=== PATIENT | female | born 1960 | race Two or more races ===

== ENCOUNTER 2019-08-17 20:36 | Emergency (ER) | payer MEDICARE, OTHER ==
[~2019-08-17] VITALS: Ht 167.6 cm; Wt 133.8 kg
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
[2019-08-17] MEDS ORDERED: OLANZAPINE 10 MG VIAL IM ONE ×2 (20:48→21:00)
--- NOTE | 2019-08-17 20:55 | NUR ---
EKG, AND LAB AT BEDSIDE
[2019-08-17 21:02] LABS: BASOPHILS # (AUTO) 0.4 /CMM (0.0-0.2); BASOPHILS % (AUTO) 2.8 % (0.0-2.0); EOSINOPHILS % (AUTO) 1.4 % (0.0-6.0); HEMATOCRIT 41 % (33-45); LYMPHOCYTES # (AUTO) 1.5 /CMM (0.8-4.8); LYMPHOCYTES % (AUTO) 11.4 % (20.0-44.0); MEAN CORPUSCULAR HGB CONC 35 g/dl (31.0-36.0); MEAN CORPUSCULAR VOLUME 88 fL (82-100); MONOCYTES # (AUTO) 0.9 /CMM (0.1-1.30); MONOCYTES % (AUTO) 7.1 % (2.0-12.0); NEUTROPHILS # (AUTO) 10.1 /CMM (1.8-8.9); NEUTROPHILS % (AUTO) 77.3 % (43.0-81.0); PLATELET COUNT (AUTO) 256 /CMM (150-450); RED BLOOD CELL COUNT(AUTO) 4.61 MIL/uL (4.0-5.2); WHITE BLOOD COUNT (AUTO) 13.1 K/uL (4.3-11.0)
[2019-08-17 21:05] LABS: APPEARANCE,URINE Cloudy (CLEAR); BILIRUBIN,URINE SMALL (NEGATIVE); BLOOD, URINE Moderate Ery/uL (NEGATIVE); COLOR,URINE Yellow (YELLOW); KETONES,URINE 15 (NEGATIVE); LEUKOCYTE ESTERASE ,URINE Moderate (NEGATIVE); NITRITE, URINE Negative (NEGATIVE); PROTEIN,URINE 100 mg/dl (NEGATIVE); UGLUCOSE Negative (NEGATIVE); UROBILINOGEN,URINE 0.2 EU/dL (0.2)
[2019-08-17 21:13] LABS: BACTERIA,URINE 4+ /HPF (None Seen); SQUAMOUS EPITHELIAL CELL,UR Few /HPF (None Seen); WBC,URINE TOO NUMEROUS TO COUN /HPF (0-3)
[2019-08-17 21:14] LABS: CALCIUM, SERUM 9.4 mg/dL (8.5-10.1); CARBON DIOXIDE 26 mmol/L (21-32); CHLORIDE 102 mmol/L (98-107); CREATININE 1.4 mg/dL (0.6-1.3); GLUCOSE 125 mg/dL (74-106); POTASSIUM 3.1 mmol/L (3.5-5.1); SODIUM SERUM 140 mmol/L (136-145); UREA NITROGEN, BLOOD 12 mg/dL (7-18)
[2019-08-17 21:19] LABS: ALANINE AMINOTRANSFERASE 21 U/L (12-78); ALBUMIN 3.9 g/dL (3.4-5.0); ALCOHOL, BLOOD < 3 mg/dL (0-0); ALKALINE PHOSPHATASE 123 U/L (46-116); ASPARTATE AMINOTRANSFERASE 25 U/L (15-37); BILIRUBIN,DIRECT 0.2 mg/dL (0.0-0.2); BILIRUBIN,TOTAL 0.7 mg/dL (0.2-1.0); TOTAL PROTEIN, SERUM 7.9 g/dL (6.4-8.2)
[2019-08-17 21:20] LABS: ACETAMINOPHEN 0 ug/ml (10-30)
--- NOTE | 2019-08-17 21:25 | NUR ---
RESTING COMFORTABLY IN BED WITH EYES CLOSED. EASILY AROUSED. NAD. VSS. WILL CONTINUE TO MONITOR. SAFETY MEASURES IN PLACE.
[2019-08-17] MEDS ORDERED: POTASSIUM CHLORIDE 20 MEQ TAB.PRT.SR PO ONE ×2 (21:30→21:37)
[2019-08-17] MEDS ORDERED: CEPHALEXIN MONOHYDRATE 500 MG CAPSULE PO ONE ×2 (21:30→21:37)
--- NOTE | 2019-08-17 22:40 | NUR ---
Patient is resting comfortably in bed with eyes closed. Easily aroused. VSS. SAFEY MEASURES IN PLACE.
--- NOTE | 2019-08-18 00:03 | NUR ---
PT ASLEEP, NO ACUTE DISTRESS NOTED, RESP EVEN AND UNLABORED. CALL LIGHT WITHIN REACH. WILL CONTINUE TO MONITOR PT CLOSELY.
--- NOTE | 2019-08-18 02:01 | NUR ---
PT ASLEEP, NO ACUTE DISTRESS NOTED, RESP EVEN AND UNLABORED. CALL LIGHT WITHIN REACH. WILL CONTINUE TO MONITOR PT CLOSELY.
--- NOTE | 2019-08-18 04:25 | NUR ---
PT ASLEEP, NO ACUTE DISTRESS NOTED, RESP EVEN AND UNLABORED. CALL LIGHT WITHIN REACH. WILL CONTINUE TO MONITOR PT CLOSELY.
--- NOTE | 2019-08-18 05:43 | NUR ---
PT AAOX4 NO ACUTE DISTRESS NOTED, RESP EVEN AND UNLABORED. PT AMBULATORY TO THE BATHROOM WITH STEADY GAIT NOTED. PT DENIES PAIN OR DISCOMFORT AT THIS TIME. PT CALM AND COOPERATIVE.
--- NOTE | 2019-08-18 08:58 | NUR ---
BREAKFAST GIVEN TO PATIENT
--- NOTE | 2019-08-18 10:21 | NUR ---
PATIENT ASLEEP VSS ARE STABLE NO DISTRESS NOTED
--- NOTE | 2019-08-18 10:37 | NUR ---
CALLED [facility] FOR TRANSPORT. ETA IS 20 MINUTES. TRIP NUMBER [id number]
--- NOTE | 2019-08-18 11:06 | NUR ---
CALLED SO KRISTA PRAKASH SPOKE TO KYLE GAVE REPORT. WAITING FOR AMBULANCE TO TRANSPORT PATIENT
[2019-08-18 11:15] VITALS: BP 133/72
--- NOTE | 2019-08-18 11:15 | NUR ---
[facility] TRANSPORT AT BEDSIDE
--- NOTE | 2019-08-18 11:22 | NUR ---
Patient discharged to home in stable condition. Written and verbal after care instructions given. Patient verbalizes understanding of instruction.
== END 2019-08-18 11:24 ==
LOC: ER 20:38
DX: R45.851 Suicidal ideations (principal); N30.00 Acute cystitis without hematuria; E87.6 Hypokalemia; I10 Essential (primary) hypertension; Z60.2 Problems related to living alone
CPT/HCPCS: 36415; 80048; 80076; 80305; 80307; 80329; 81001; 84484; 85025; 87077; 87086; 87186; 93005; 96372; 99285; G0480; J3490; 81000-TC

== ENCOUNTER 2021-03-29 17:50 | Emergency (ER) | payer MEDICARE, OTHER ==
[~2021-03-29] VITALS: Ht 167.6 cm; Wt 128.8 kg
--- NOTE | 2021-03-29 18:24 | NUR ---
[id number] FROM [facility] FOR PRODUCTIVE COUGH & CONGESTION. PT AAOX4, VSS. RR EVEN & UNLABORED. DENIES CP, SOB, DIZZINESS, N/V AT THIS TIME. UPON TALKING TO MARSII, SNUFF CONTAINER INSPECTOR PT ALSO C/O ABD PAIN. WILL CONT TO MONITOR.
[2021-03-29 18:25] LABS: BASOPHILS # (AUTO) 0.1 /CMM (0.0-0.2); EOSINOPHILS % (AUTO) 4.9 % (0.0-6.0); HEMATOCRIT 41 % (33-45); HEMOGLOBIN 13.6 g/dL (11.5-14.8); LYMPHOCYTES # (AUTO) 3.2 /CMM (0.8-4.8); LYMPHOCYTES % (AUTO) 39.6 % (20.0-44.0); MEAN CORPUSCULAR HGB CONC 34 g/dl (31.0-36.0); MEAN CORPUSCULAR VOLUME 89 fL (82-100); MONOCYTES # (AUTO) 0.7 /CMM (0.1-1.30); MONOCYTES % (AUTO) 8.2 % (2.0-12.0); NEUTROPHILS # (AUTO) 3.8 /CMM (1.8-8.9); NEUTROPHILS % (AUTO) 46.3 % (43.0-81.0); PLATELET COUNT (AUTO) 294 /CMM (150-450); RED BLOOD CELL COUNT(AUTO) 4.55 MIL/uL (4.0-5.2); WHITE BLOOD COUNT (AUTO) 8.2 K/uL (4.3-11.0)
[2021-03-29] MEDS ORDERED: IV NS 0.9% 1,000 ML BAG IV ONE (18:30)
[2021-03-29] MEDS ORDERED: LORAZEPAM INJ 2 MG/ML VIAL IV ONE (18:30)
[2021-03-29] MEDS ORDERED: MAG HYDROX/AL HYDROX/SIMETH 30 ML UDC PO ONE (18:30)
[2021-03-29] MEDS ORDERED: LIDOCAINE VISCOUS 2% UD 15 ML UDC MM ONE (18:30)
[2021-03-29] MEDS ORDERED: LIDOCAINE VISCOUS 2% UD 15 ML UDC ONE (18:32)
[2021-03-29] MEDS ORDERED: LORAZEPAM INJ 2 MG/ML VIAL ONE (18:33)
[2021-03-29] MEDS ORDERED: MAG HYDROX/AL HYDROX/SIMETH 30 ML UDC ONE (18:33)
[2021-03-29 18:36] LABS: CALCIUM, SERUM 9.3 mg/dL (8.5-10.1); CARBON DIOXIDE 25 mmol/L (21-32); CHLORIDE 107 mmol/L (98-107); CREATININE 0.9 mg/dL (0.6-1.3); GLUCOSE 99 mg/dL (74-106); SODIUM SERUM 142 mmol/L (136-145); UREA NITROGEN, BLOOD 11 mg/dL (7-18)
[2021-03-29 18:42] LABS: ALANINE AMINOTRANSFERASE 25 U/L (12-78); ALBUMIN 3.7 g/dL (3.4-5.0); ALKALINE PHOSPHATASE 116 U/L (46-116); ASPARTATE AMINOTRANSFERASE 18 U/L (15-37); BILIRUBIN,DIRECT 0.1 mg/dL (0.0-0.2); BILIRUBIN,TOTAL 0.4 mg/dL (0.2-1.0); LIPASE 78 U/L (73-393); TOTAL PROTEIN, SERUM 7.5 g/dL (6.4-8.2)
--- NOTE | 2021-03-29 18:42 | NUR ---
MEDICATED ORDERED, PT FERMIN WELL. WILL CONT TO MONITOR.
[2021-03-29] MEDS ORDERED: HYDROCODONE/APAP 5/325MG TABLET PO ONE (19:30)
[2021-03-29] MEDS ORDERED: FAMO-131 PO (19:32)
[2021-03-29] MEDS ORDERED: OMEP20CA15 PO (19:32)
--- NOTE | 2021-03-29 19:44 | NUR ---
ATTEMPTED TO CALL SO KRISTA PRAKASH, NO ANSWER
--- NOTE | 2021-03-29 19:46 | NUR ---
REPORT GIVEN TO FERNANDA PULIDO FOR WENDI AND D/C INFO
--- NOTE | 2021-03-29 19:46 | NUR ---
[facility] WILL BE TRANSPORTING PT BACK TO [facility] AT 2100.
--- NOTE | 2021-03-29 20:07 | NUR ---
PROVIDED PT WITH FOOD AND JUICE.
[2021-03-29] MEDS ORDERED: HYDROCODONE/APAP 5/325MG TABLET ONE (21:27)
--- NOTE | 2021-03-29 21:49 | NUR ---
[id number] IS THE TRIP NUMBER, AWAITING CALL BACK FROM [facility] FOR ETA. ALBINO DUDLEY REQUESTED. FLAVIA REQUESTED.
--- NOTE | 2021-03-29 22:11 | NUR ---
[facility] ETA [id number]
--- NOTE | 2021-03-29 23:31 | NUR ---
report given to amb[facility] for jared
[2021-03-29 23:33] VITALS: BP 123/84
== END 2021-03-29 23:33 ==
LOC: ER 17:52
DX: K29.70 Gastritis, unspecified, without bleeding (principal); M25.561 Pain in right knee; G89.29 Other chronic pain; F32.9 Major depressive disorder, single episode, unspecified; F41.9 Anxiety disorder, unspecified; M54.9 Dorsalgia, unspecified; F25.9 Schizoaffective disorder, unspecified; I10 Essential (primary) hypertension; E78.5 Hyperlipidemia, unspecified; J44.9 Chronic obstructive pulmonary disease, unspecified; E66.01 Morbid (severe) obesity due to excess calories; Z68.42 Body mass index [BMI] 45.0-49.9, adult; Z60.2 Problems related to living alone; Z79.899 Other long term (current) drug therapy
CPT/HCPCS: 36415; 71045; 76705; 80048; 80076; 83690; 84484; 85025; 93005; 96361; 96374; 99285; J2060; J7030

== ENCOUNTER 2021-04-22 11:24 | Emergency (ER) | payer MEDICARE, OTHER ==
[~2021-04-22] VITALS: Ht 167.6 cm; Wt 128.4 kg
[~2021-04-22 11:24] MED LIST: FAMO-131 PO; OMEP20CA15 PO
--- NOTE | 2021-04-22 11:30 | NUR ---
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 RATES PAIN 7/10. IN ROOM AIR AND DENIES SOB. RESPIRATION REGULAR AND UNLABORED. ATTACHED TO THE MONITOR. WARM BLANKET PROVIDED. WILL CONTINUE TO MONITOR THE PATIENT.
--- NOTE | 2021-04-22 11:55 | NUR ---
BLOOD SPECIMEN COLLECTED AND SENT TO THE LAB
[2021-04-22 11:57] LABS: BASOPHILS # (AUTO) 0.1 /CMM (0.0-0.2); EOSINOPHILS % (AUTO) 2.1 % (0.0-6.0); HEMATOCRIT 42 % (33-45); HEMOGLOBIN 14.3 g/dL (11.5-14.8); LYMPHOCYTES # (AUTO) 2.7 /CMM (0.8-4.8); LYMPHOCYTES % (AUTO) 26.9 % (20.0-44.0); MEAN CORPUSCULAR HGB CONC 34 g/dl (31.0-36.0); MEAN CORPUSCULAR VOLUME 89 fL (82-100); MONOCYTES # (AUTO) 0.8 /CMM (0.1-1.30); MONOCYTES % (AUTO) 8.1 % (2.0-12.0); NEUTROPHILS # (AUTO) 6.1 /CMM (1.8-8.9); NEUTROPHILS % (AUTO) 61.9 % (43.0-81.0); PLATELET COUNT (AUTO) 283 /CMM (150-450); RED BLOOD CELL COUNT(AUTO) 4.78 MIL/uL (4.0-5.2); WHITE BLOOD COUNT (AUTO) 9.9 K/uL (4.3-11.0)
[2021-04-22] MEDS ORDERED: MAG HYDROX/AL HYDROX/SIMETH 30 ML UDC ONE (11:59)
[2021-04-22] MEDS ORDERED: ONDANSETRON HCL/PF 4 MG/2 ML VIAL ONE (11:59)
[2021-04-22] MEDS ORDERED: LIDOCAINE VISCOUS 2% UD 15 ML UDC ONE (11:59)
[2021-04-22] MEDS ORDERED: PANTOPRAZOLE 40 MG VIAL ONE (11:59)
[2021-04-22] MEDS ORDERED: PANTOPRAZOLE 40 MG VIAL IV ONE (12:00)
[2021-04-22] MEDS ORDERED: ONDANSETRON HCL/PF 4 MG/2 ML VIAL IV ONE (12:00)
[2021-04-22] MEDS ORDERED: MORPHINE SULFATE INJ 4 MG/ML DISP.SYRIN ONE (12:00)
[2021-04-22] MEDS ORDERED: MAG HYDROX/AL HYDROX/SIMETH 30 ML UDC PO ONE (12:00)
[2021-04-22] MEDS ORDERED: LIDOCAINE VISCOUS 2% UD 15 ML UDC MM ONE (12:00)
[2021-04-22] MEDS ORDERED: MORPHINE SULFATE INJ 4 MG/ML DISP.SYRIN IV ONE (12:00)
[2021-04-22 12:18] LABS: CALCIUM, SERUM 9.8 mg/dL (8.5-10.1); CARBON DIOXIDE 23 mmol/L (21-32); CHLORIDE 104 mmol/L (98-107); GLUCOSE 119 mg/dL (74-106); POTASSIUM 3.8 mmol/L (3.5-5.1); SODIUM SERUM 139 mmol/L (136-145); UREA NITROGEN, BLOOD 17 mg/dL (7-18)
[2021-04-22] MEDS ORDERED: QUET200T PO (12:18)
[2021-04-22] MEDS ORDERED: FLUT16SP NS (12:18)
[2021-04-22] MEDS ORDERED: ATOR20TA PO (12:18)
[2021-04-22] MEDS ORDERED: ESCI5TAB PO (12:18)
--- NOTE | 2021-04-22 12:45 | NUR ---
[facility] ETA [id number]
--- NOTE | 2021-04-22 14:10 | NUR ---
THE PATIENT IS ALERT AND ORIENTED X4. DENIES PAIN. IN ROOM AIR AND DENIES SOB. RESPIRATION REGULAR AND UNLABORED. DISCHARGE INSTRUCTIONS PROVIDED AND THE PATIENT VERBALIZED UNDERSTANDING. PATIENT LEFT ER IN STABLE CONDITION AND VIA ARRANGED TRANSPO.
[2021-04-22 14:18] VITALS: BP 124/76
== END 2021-04-22 14:15 ==
LOC: ER 11:29
DX: S13.8XXA Sprain of joints and ligaments of other parts of neck, initial encounter (principal); R07.89 Other chest pain; M17.11 Unilateral primary osteoarthritis, right knee; I10 Essential (primary) hypertension; J44.9 Chronic obstructive pulmonary disease, unspecified; F32.9 Major depressive disorder, single episode, unspecified; F41.9 Anxiety disorder, unspecified; Z88.6 Allergy status to analgesic agent; Z88.8 Allergy status to other drugs, medicaments and biological substances; Z60.2 Problems related to living alone; Z79.899 Other long term (current) drug therapy; Y08.89XA Assault by other specified means, initial encounter; Y93.89 Activity, other specified; Y92.89 Other specified places as the place of occurrence of the external cause; Y99.8 Other external cause status
CPT/HCPCS: 36415; 71045; 72125; 73564 ×2; 80048; 84484; 85025; 93005 ×2; 96374; 96375; 99285; C9113; J2270; J2405

== ENCOUNTER 2021-07-28 12:10 | Inpatient (IN) | payer MEDICARE, OTHER ==
[~2021-07-28] VITALS: Ht 167.6 cm; Wt 125.6 kg
[~2021-07-28 12:10] MED LIST changes: +ATOR20TA PO; +ESCI5TAB PO; +FLUT16SP NS; -OMEP20CA15 PO; +QUET200T PO
--- NOTE | 2021-07-28 12:10 | NUR ---
BIBRA 860 AND [employer] FROM [facility] C/O SI PLAN IS TO OD ON DRUGS. PT IS AAOX4, NOT IN RESPIRATORY DISTRESS, V/S STABLE, KEPT RESTED AND COMFORTABLE. WILL CONTINUE TO MONITOR.
--- NOTE | 2021-07-28 12:20 | NUR ---
SITTER AT BEDSIDE FOR SI PROTOCOL.
[2021-07-28] MEDS ORDERED: LORAZEPAM INJ 2 MG/ML VIAL ONE (12:28)
[2021-07-28] MEDS ORDERED: LORAZEPAM INJ 2 MG/ML VIAL IM ONE (12:30)
--- NOTE | 2021-07-28 12:31 | NUR ---
ER PHLEB AT BEDSIDE FOR BLOOD DRAW.
[2021-07-28 12:38] LABS: BASOPHILS # (AUTO) 0.1 K/uL (0.0-0.2); BASOPHILS % (AUTO) 1.4 % (0.0-2.0); EOSINOPHILS % (AUTO) 2.2 % (0.0-6.0); HEMATOCRIT 44 % (33-45); LYMPHOCYTES # (AUTO) 4.1 K/uL (0.8-4.8); LYMPHOCYTES % (AUTO) 39.8 % (20.0-44.0); MEAN CORPUSCULAR HGB CONC 34 g/dl (31.0-36.0); MEAN CORPUSCULAR VOLUME 85 fL (82-100); MONOCYTES # (AUTO) 0.9 K/uL (0.1-1.30); MONOCYTES % (AUTO) 8.4 % (2.0-12.0); NEUTROPHILS # (AUTO) 4.9 K/uL (1.8-8.9); NEUTROPHILS % (AUTO) 48.2 % (43.0-81.0); PLATELET COUNT (AUTO) 307 K/uL (150-450); RED BLOOD CELL COUNT(AUTO) 5.24 MIL/uL (4.0-5.2); WHITE BLOOD COUNT (AUTO) 10.2 K/uL (4.3-11.0)
[2021-07-28 12:47] LABS: CALCIUM, SERUM 10.1 mg/dL (8.5-10.1); CARBON DIOXIDE 21 mmol/L (21-32); CHLORIDE 104 mmol/L (98-107); GLUCOSE 98 mg/dL (74-106); POTASSIUM 3.8 mmol/L (3.5-5.1); SODIUM SERUM 142 mmol/L (136-145); UREA NITROGEN, BLOOD 13 mg/dL (7-18)
[2021-07-28 12:53] LABS: ALANINE AMINOTRANSFERASE 22 U/L (12-78); ALBUMIN 4.2 g/dL (3.4-5.0); ALCOHOL, BLOOD < 3 mg/dL (0-0); ALKALINE PHOSPHATASE 127 U/L (46-116); ASPARTATE AMINOTRANSFERASE 20 U/L (15-37); BILIRUBIN,DIRECT 0.1 mg/dL (0.0-0.2); BILIRUBIN,TOTAL 0.5 mg/dL (0.2-1.0); TOTAL PROTEIN, SERUM 8.4 g/dL (6.4-8.2)
[2021-07-28 12:54] LABS: ACETAMINOPHEN 0 ug/ml (10-30)
[2021-07-28] MEDS ORDERED: MORPHINE SULFATE INJ 2 MG/ML DISP.SYRIN IM ONE (13:00)
[2021-07-28] MEDS ORDERED: MORPHINE SULFATE INJ 4 MG/ML DISP.SYRIN ONE (13:22)
[2021-07-28 14:09] LABS: BILIRUBIN,URINE Negative (NEGATIVE); COLOR,URINE YELLOW (YELLOW); LEUKOCYTE ESTERASE ,URINE Negative (NEGATIVE); NITRITE, URINE Negative (NEGATIVE); PROTEIN,URINE Negative (NEGATIVE); UGLUCOSE Negative (NEGATIVE); UROBILINOGEN,URINE 0.2 EU/dL (0.2)
--- NOTE | 2021-07-28 16:40 | NUR ---
GOT BED [id number]
[2021-07-28] MEDS ORDERED: LORA-259 PO (16:42)
[2021-07-28] MEDS ORDERED: FAMO20TA8 PO (16:42)
[2021-07-28] MEDS ORDERED: IBUP-1955 PO (16:42)
[2021-07-28] MEDS ORDERED: QUET25TA PO ×2 (16:42)
[2021-07-28] MEDS ORDERED: NAPR-1009 PO (16:42)
[2021-07-28] MEDS ORDERED: CITA20TA19 PO (16:42)
[2021-07-28] MEDS ORDERED: TRAZ-182 PO (16:42)
--- NOTE | 2021-07-28 16:45 | NUR ---
REPORT GIVEN TO FERNANDA VILLEDA FOR WENDI.
[2021-07-28] MEDS ORDERED: CELE200C PO (17:33)
[2021-07-28] MEDS ORDERED: NICO-762 TD (17:35)
[2021-07-28 17:55] VITALS: BP 110/55
[2021-07-28] MEDS ORDERED: MAG HYDROX/AL HYDROX/SIMETH 30 ML UDC PO PRN (18:00)
[2021-07-28] MEDS ORDERED: MAGNESIUM HYDROXIDE 30 ML UDC PO PRN (18:00)
[2021-07-28] MEDS ORDERED: BLOOD SUGAR DIAGNOSTIC 1 EACH STRIP IN ONE (18:00)
--- NOTE | 2021-07-28 18:28 | NUR ---
Pt. arrived in the unit via gurney from ER. Admitted a 61 years female on 5150 for DTS. Pt.brought to ER for suicidal ideation and a plan to overdose. Pt. is depressed and suicidal with a plan to overdose on her medications and is frustrated with her life. V/S taken, contraband done. Pt. came with medical boots, per. pt. she had a fracture and the doctor removed the cast 2 weeks ago. Per pt. she will contract to be safe while in the hospital and will not use the medical boots for hurting herself and hurting others. Pt. denies being suicidal and homicidal at this time. Pt. doesn't want to disclose to anybody or notify her immediate contact center representative. Dr. Ruano made aware of the admission and with orders. Pt. signed the admitting papers and will endorse to incoming nurse for the completion of the admission.
--- NOTE | 2021-07-28 19:30 | NUR ---
GPS RN NOTE, RECEIVED PATIENT AWAKE AND IN BED, HAS A COMPLAINT OF CHRONIC RIGHT FOOT AND ANKLE PAIN AT 8 OUT OF 10 ON THE PAIN SCALE AT THIS TIME. PATIENT IS DISPLAYING NO S/S OF APPARENT DISTRESS AT THIS TIME. PATIENT BREATHING IS UNLABORED WITH EQUAL RISE AND FALL OF THE CHEST. PATIENT IS ALERT AND ORIENTED X 3 ON ROOM AIR WITH A SPO2 95%. PATIENT IS COMPLIANT WITH MEDICATIONS, CALM, AND COOPERATIVE. PATIENT REFUSED SKIN ASSESSMENT AND PHOTOS AT THIS TIME. PATIENT DENIES SUICIDAL AND HOMICIDAL IDEATIONS AT TIME. PATIENT EDUCATED ON THE USE OF THE CALL POWELL. PATIENT BED SIDE RAILS UP X 2 FOR SAFETY. PATIENT BED IS LOCKED, LOW, WITH BED ALARM ON. WILL CONTINUE TO MONITOR THIS PATIENT Q15 MINUTES WITH THE HELP OF STAFF TO MAINTAIN SAFETY.
[2021-07-28 20:00] VITALS: BP 139/75
[2021-07-28] MEDS ORDERED: ACETAMINOPHEN 325 MG TABLET PO PRN (20:00)
[2021-07-28] MEDS: HYDROCODONE/APAP 10/325MG TABLET PO PRN (20:22)
--- NOTE | 2021-07-28 20:22 | NUR ---
GPS RN NOTE, PATIENT HAS A COMPLAINT OF CHRONIC RIGHT ANKLE AND FOOT PAIN AT 8 OUT 10 ON THE PAIN SCALE AND IS REQUESTING NORCO AT THIS TIME. PATIENT VITAL SIGNS ARE STABLE. GAVE NORCO 10 - 325 1 TAB Q6HR PRN ORDERED. WILL REASSESS PAIN AND I WILL CONTINUE TO MONITOR THIS PATIENT WITH THE HELP OF STAFF.
[2021-07-28] MEDS ORDERED: NAPROXEN 500 MG TABLET PO PRN (20:30)
[2021-07-28] MEDS: TEMAZEPAM 7.5 MG CAPSULE PO PRN (22:00)
--- NOTE | 2021-07-28 22:02 | NUR ---
GPS RN NOTE, PATIENT HAS A COMPLAINT OF NOT BEING ABLE TO SLEEP AND IS REQUESTING RESTORIL AT THIS TIME. PATIENT VITAL SIGNS ARE STABLE. GAVE RESTORIL 7.5MG PO HS PRN ORDERED. WILL REASSESS FOR INSOMNIA AND I WILL CONTINUE TO MONITOR THIS PATIENT WITH THE HELP OF STAFF.
[2021-07-29] MEDS: LORAZEPAM 0.5 MG TABLET PO PRN ×3 (00:57→22:47)
--- NOTE | 2021-07-29 00:59 | NUR ---
GPS RN NOTE, PATIENT HAS A COMPLAINT OF FEELING ANXIOUS AND IS REQUESTING ATIVAN AT THIS TIME. PATIENT VITAL SIGNS ARE STABLE. GAVE ATIVAN 0.5MG PO Q6HR PRN ORDERED. WILL REASSESS FOR ANXIETY AND I WILL CONTINUE TO MONITOR THIS PATIENT WITH THE HELP OF STAFF.
[2021-07-29] MEDS: HYDROCODONE/APAP 10/325MG TABLET PO PRN ×3 (04:18→17:13)
[2021-07-29 07:13] LABS: CHOLESTEROL 173 mg/dL (<200); HDL CHOLESTEROL 37 mg/dL (40-60); LDL 121 mg/dL (0-99); TRIGLYCERIDES 134 mg/dL (30-150)
[2021-07-29 07:16] LABS: ALBUMIN 3.2 g/dL (3.4-5.0); BILIRUBIN,TOTAL 0.3 mg/dL (0.2-1.0); CALCIUM, SERUM 8.3 mg/dL (8.5-10.1); CREATININE 0.9 mg/dL (0.6-1.3); TOTAL PROTEIN, SERUM 6.7 g/dL (6.4-8.2)
[2021-07-29 08:00] VITALS: BP 129/93
[2021-07-29] MEDS: FAMOTIDINE (20 MG) 20 MG TABLET PO SCH (08:19)
[2021-07-29] MEDS: NICOTINE PATCH (21MG) 21 MG PATCH.TD24 TD SCH (08:21)
[2021-07-29] MEDS: risperiDONE 1 MG TABLET PO SCH ×2 (13:44→17:10)
[2021-07-29] MEDS: BENZTROPINE MESYLATE (1 MG) 1 MG TABLET PO SCH ×2 (13:44→17:10)
[2021-07-29] MEDS: DIVALPROEX SODIUM 250 MG TABLET.DR PO SCH ×3 (13:44→22:12)
--- NOTE | 2021-07-29 15:58 | NUR ---
Initial Discharge Plan Pt plans to be discharged to an assisted living or SNF. SW will work with the pt and the MD regarding appropriate discharge planning. SW will form a safe and proper discharge plan.
--- NOTE | 2021-07-29 15:58 | NUR ---
Family Contact SW contacted pt's half-brother, Carlos Ibrahim, , and left a voicemail.
[2021-07-29 16:00] VITALS: BP 113/67
--- NOTE | 2021-07-29 16:04 | NUR ---
SNF Referral SW faxed clinicals to [facility], , for review.
--- NOTE | 2021-07-29 16:10 | NUR ---
D/C Planning/SNF Update SW was notified that the pt has been accepted [facility].
[2021-07-29 20:21] VITALS: BP 110/57
--- NOTE | 2021-07-29 22:49 | NUR ---
GPS RN NOTES: Ativan 0.5mg given PO at 2247 for anxiety. Will continue to monitor.
[2021-07-30] MEDS: HYDROCODONE/APAP 10/325MG TABLET PO PRN ×3 (03:37→20:59)
--- NOTE | 2021-07-30 03:44 | NUR ---
GPS NR NOTES: Patient c/o right lower leg pain. Rates pain level 8/10. [place] 10-325mg 1tab given PO at 0337. Will continue to monitor.
--- NOTE | 2021-07-30 06:52 | NUR ---
GPS RN NOTES: PATIENT IS LAYING ON BED, AWAKE, ALERT AND ORIENTED X3. PATIENT SLEPT 5 HRS THIS SHIFT. PATIENT HAS NO S/S OF DISTRESS AT THIS TIME. DENIES ANY PAIN AT THIS TIME. RESPIRATION EVEN AND UNLABORED WITH EQUAL RISE AND FALL OF THE CHEST, ON ROOM AIR. ALL PATIENT CARE NEEDS HAVE BEEN MET ANTICIPATED. WILL CONTINUE TO MONITOR AND ENDORSE TO AM SHIFT.
--- NOTE | 2021-07-30 06:54 | NUR ---
GPS RN NOTES: PATIENT IS CURRENTLY IN DAY ROOM, SITTING IN WILDER CHAIR FOR HER SAFETY, AWAKE, ALERT AND ORIENTED X1. PATIENT SLEPT 3 HR THIS SHIFT. PATIENT HAS NO S/S OF DISTRESS AT THIS TIME. DENIES ANY PAIN AT THIS TIME. RESPIRATION EVEN AND UNLABORED WITH EQUAL RISE AND FALL OF THE CHEST, ON ROOM AIR. ALL PATIENT CARE NEEDS HAVE BEEN MET ANTICIPATED. WILL CONTINUE TO MONITOR AND ENDORSE TO AM SHIFT. Addendum: 07/30/21 at 0658 by MEME TEIXEIRA RN WRONGLY CHARTED. CHART IS FOR ANOTHER PATIENT
[2021-07-30 08:00] VITALS: BP 123/68
[2021-07-30] MEDS: NICOTINE PATCH (21MG) 21 MG PATCH.TD24 TD SCH (09:00)
[2021-07-30] MEDS: FAMOTIDINE (20 MG) 20 MG TABLET PO SCH (09:56)
[2021-07-30] MEDS: DIVALPROEX SODIUM 250 MG TABLET.DR PO SCH ×4 (09:56→21:17)
[2021-07-30] MEDS: risperiDONE 1 MG TABLET PO SCH ×3 (09:56→17:50)
[2021-07-30] MEDS: BENZTROPINE MESYLATE (1 MG) 1 MG TABLET PO SCH ×3 (09:56→17:50)
--- NOTE | 2021-07-30 12:29 | NUR ---
GIVEN NORCO 10 MG FOR RT. LEG PAIN.
[2021-07-30 16:00] VITALS: BP 127/87
[2021-07-30] MEDS: LORAZEPAM 0.5 MG TABLET PO PRN (18:01)
--- NOTE | 2021-07-30 18:04 | NUR ---
GIVEN ATIVAN FOR NERVES.
--- NOTE | 2021-07-30 19:50 | NUR ---
GPS RN NOTES RECEIVED LAYING COMFORTABLY ON BED,AWAKE,A/O X3,APPEARS DEPRESSED BUT RE DIRECTABLE,AMBULATE WITH WALKER,FALL RISK PRECAUTION OBSERVED,BED ALARM FOR SAFETY,ASSIST WITH ADL'S,WILL CONTINUE TO MONITOR BEHAVIOR AND MANAGE ACCORDINGLY.
[2021-07-30 20:00] VITALS: BP 116/59
--- NOTE | 2021-07-30 20:59 | NUR ---
c/o right foot pain 8/10 on pain scale,norco 10/325mg,1 tab po given as ordered for severe pain
[2021-07-30 21:01] VITALS: BP 116/59
[2021-07-31 08:00] VITALS: BP 149/84
[2021-07-31] MEDS: risperiDONE 1 MG TABLET PO SCH ×3 (08:02→16:41)
[2021-07-31] MEDS: DIVALPROEX SODIUM 250 MG TABLET.DR PO SCH ×4 (08:02→21:40)
[2021-07-31] MEDS: NICOTINE PATCH (21MG) 21 MG PATCH.TD24 TD SCH (08:03)
[2021-07-31] MEDS: FAMOTIDINE (20 MG) 20 MG TABLET PO SCH (08:03)
[2021-07-31] MEDS: BENZTROPINE MESYLATE (1 MG) 1 MG TABLET PO SCH ×3 (08:03→16:41)
[2021-07-31] MEDS: MUPIROCIN OINT 2% 22 GM TUBE NS SCH ×2 (10:36→21:41)
[2021-07-31] MEDS: HYDROCODONE/APAP 10/325MG TABLET PO PRN ×2 (15:56→22:09)
[2021-07-31] MEDS: LORAZEPAM 0.5 MG TABLET PO PRN (15:58)
[2021-07-31 16:00] VITALS: BP 147/84
[2021-07-31 20:00] VITALS: BP 107/57
--- NOTE | 2021-07-31 20:00 | NUR ---
GPS-RN NOTES PATIENT REFUSED SKIN WEEKLY ASSESSMENT.
[2021-08-01] MEDS: HYDROCODONE/APAP 10/325MG TABLET PO PRN ×4 (05:02→11:35)
--- NOTE | 2021-08-01 05:02 | NUR ---
GPS RN NOTES: PAIN PATIENT C/O RIGHT LOWER LEG PAIN ON A PAIN SCALE OF 7/10. PRN NORCO 5/325MG PO GIVEN ORDERED. WILL CONTINUE TO MONITOR. Addendum: 08/01/21 at 0620 by FADY ORONA RN CORRECTION ON ABOVE DOSAGE: NORCO 10/325MG
[2021-08-01 08:00] VITALS: BP 121/73
[2021-08-01] MEDS: BENZTROPINE MESYLATE (1 MG) 1 MG TABLET PO SCH ×3 (08:36→16:05)
[2021-08-01] MEDS: FAMOTIDINE (20 MG) 20 MG TABLET PO SCH (08:36)
[2021-08-01] MEDS: DIVALPROEX SODIUM 250 MG TABLET.DR PO SCH ×4 (08:36→21:20)
[2021-08-01] MEDS: risperiDONE 1 MG TABLET PO SCH ×3 (08:36→16:05)
[2021-08-01] MEDS: NICOTINE PATCH (21MG) 21 MG PATCH.TD24 TD SCH (08:37)
[2021-08-01] MEDS: LORAZEPAM 0.5 MG TABLET PO PRN ×3 (08:47→21:20)
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
[2021-08-01] MEDS: MUPIROCIN OINT 2% 22 GM TUBE NS SCH ×2 (09:28→21:53)
--- NOTE | 2021-08-01 11:36 | NUR ---
RN-CO: [employer] WAS SCANNED TWICE.
[2021-08-01 16:00] VITALS: BP 118/82
--- NOTE | 2021-08-01 19:55 | NUR ---
NURSES NOTES: RECEIVED PATIENT IN HER ROOM AWAKE, NO SIGNS OF ANY DISTRESS, RESPIRATION UNLABORED. WILL MONITOR FOR SAFETY AND BEHAVIOR.
[2021-08-01 20:00] VITALS: BP 138/48
[2021-08-01] MEDS: TEMAZEPAM 7.5 MG CAPSULE PO PRN (22:33)
[2021-08-02 08:00] VITALS: BP 148/90
[2021-08-02] MEDS: risperiDONE 1 MG TABLET PO SCH ×3 (08:35→17:16)
[2021-08-02] MEDS: FAMOTIDINE (20 MG) 20 MG TABLET PO SCH (08:35)
[2021-08-02] MEDS: DIVALPROEX SODIUM 250 MG TABLET.DR PO SCH ×4 (08:35→21:11)
[2021-08-02] MEDS: BENZTROPINE MESYLATE (1 MG) 1 MG TABLET PO SCH ×3 (08:35→17:16)
[2021-08-02] MEDS: MUPIROCIN OINT 2% 22 GM TUBE NS SCH ×2 (08:36→21:12)
[2021-08-02] MEDS: HYDROCODONE/APAP 10/325MG TABLET PO PRN (08:41)
[2021-08-02] MEDS: NICOTINE PATCH (21MG) 21 MG PATCH.TD24 TD SCH (08:41)
[2021-08-02] MEDS: LORAZEPAM 0.5 MG TABLET PO PRN (13:10)
[2021-08-02 16:00] VITALS: BP 155/77
[2021-08-02 20:00] VITALS: BP 146/89
[2021-08-03] MEDS: TEMAZEPAM 7.5 MG CAPSULE PO PRN ×2 (00:26→22:11)
--- NOTE | 2021-08-03 00:27 | NUR ---
RN NOTES: INSOMNIA PT. UNABLE TO SLEEP , RESTORIL 7.5 MG PO PRN GIVEN, WILL CONTINUE TO MONITOR.
[2021-08-03 06:37] VITALS: BP 130/70
[2021-08-03 06:53] LABS: BASOPHILS % (AUTO) 0.4 % (0.0-2.0); EOSINOPHILS % (AUTO) 3.6 % (0.0-6.0); HEMATOCRIT 39 % (33-45); HEMOGLOBIN 13.2 g/dL (11.5-14.8); LYMPHOCYTES # (AUTO) 3.1 K/uL (0.8-4.8); LYMPHOCYTES % (AUTO) 38.9 % (20.0-44.0); MEAN CORPUSCULAR HGB CONC 33 g/dl (31.0-36.0); MEAN CORPUSCULAR VOLUME 87 fL (82-100); MONOCYTES # (AUTO) 0.7 K/uL (0.1-1.30); MONOCYTES % (AUTO) 8.7 % (2.0-12.0); NEUTROPHILS # (AUTO) 3.9 K/uL (1.8-8.9); NEUTROPHILS % (AUTO) 48.4 % (43.0-81.0); PLATELET COUNT (AUTO) 235 K/uL (150-450); RED BLOOD CELL COUNT(AUTO) 4.54 MIL/uL (4.0-5.2); WHITE BLOOD COUNT (AUTO) 8.1 K/uL (4.3-11.0)
[2021-08-03 07:22] LABS: ALBUMIN 3.4 g/dL (3.4-5.0); BILIRUBIN,TOTAL 0.5 mg/dL (0.2-1.0); CALCIUM, SERUM 8.7 mg/dL (8.5-10.1); CREATININE 0.9 mg/dL (0.6-1.3); POTASSIUM 3.5 mmol/L (3.5-5.1); TOTAL PROTEIN, SERUM 7.2 g/dL (6.4-8.2)
[2021-08-03 08:00] VITALS: BP 147/81
[2021-08-03] MEDS: risperiDONE 1 MG TABLET PO SCH ×3 (08:00→16:07)
[2021-08-03] MEDS: DIVALPROEX SODIUM 250 MG TABLET.DR PO SCH ×4 (08:00→21:38)
[2021-08-03] MEDS: FAMOTIDINE (20 MG) 20 MG TABLET PO SCH (08:01)
[2021-08-03] MEDS: BENZTROPINE MESYLATE (1 MG) 1 MG TABLET PO SCH ×3 (08:01→16:07)
[2021-08-03] MEDS: NICOTINE PATCH (21MG) 21 MG PATCH.TD24 TD SCH (08:01)
[2021-08-03] MEDS: HYDROCODONE/APAP 10/325MG TABLET PO PRN ×2 (08:01→13:58)
[2021-08-03] MEDS: MUPIROCIN OINT 2% 22 GM TUBE NS SCH ×2 (08:09→21:38)
--- NOTE | 2021-08-03 11:11 | NUR ---
Court Hearing: Patient's court hearing for 7180 was today and it was upheld for GD and DTS.
[2021-08-03 16:00] VITALS: BP 132/82
--- NOTE | 2021-08-03 19:30 | NUR ---
GPS RN NOTE, RECEIVED PATIENT AWAKE AND IN BED, NO S/S OR COMPLAINTS OF PAIN AT THIS TIME. PATIENT IS DISPLAYING NO S/S OF APPARENT DISTRESS AT THIS TIME. PATIENT BREATHING IS UNLABORED WITH EQUAL RISE AND FALL OF THE CHEST. PATIENT IS ALERT AND ORIENTED X 3 ON ROOM AIR WITH A SPO2 98%. PATIENT IS COMPLIANT WITH MEDICATIONS, ANXIOUS AT TIMES, NEEDY, AND IS COOPERATIVE. PATIENT DENIES SUICIDAL AND HOMICIDAL IDEATIONS AT TIME. PATIENT EDUCATED ON THE USE OF THE CALL POWELL. PATIENT BED SIDE RAILS UP X 2 FOR SAFETY. PATIENT BED IS LOCKED, LOW, WITH BED ALARM ON. WILL CONTINUE TO MONITOR THIS PATIENT Q15 MINUTES WITH THE HELP OF STAFF TO MAINTAIN SAFETY.
[2021-08-03 20:00] VITALS: BP 142/87
--- NOTE | 2021-08-03 22:11 | NUR ---
GPS RN NOTE, PATIENT HAS A COMPLAINT OF NOT BEING ABLE TO SLEEP AND IS REQUESTING RESTORIL AT THIS TIME. PATIENT VITAL SIGNS ARE STABLE. GAVE RESTORIL 7.5MG PO HS PRN ORDERED. WILL REASSESS FOR INSOMNIA AND I WILL CONTINUE TO MONITOR THIS PATIENT.
[2021-08-04] MEDS: HYDROCODONE/APAP 10/325MG TABLET PO PRN ×4 (02:55→21:28)
[2021-08-04 08:00] VITALS: BP 137/92
[2021-08-04] MEDS: risperiDONE 1 MG TABLET PO SCH ×3 (08:10→16:38)
[2021-08-04] MEDS: FAMOTIDINE (20 MG) 20 MG TABLET PO SCH (08:10)
[2021-08-04] MEDS: BENZTROPINE MESYLATE (1 MG) 1 MG TABLET PO SCH ×3 (08:10→16:38)
[2021-08-04] MEDS: DIVALPROEX SODIUM 250 MG TABLET.DR PO SCH ×4 (08:10→21:27)
[2021-08-04] MEDS: MUPIROCIN OINT 2% 22 GM TUBE NS SCH ×2 (08:11→21:29)
[2021-08-04] MEDS: NICOTINE PATCH (21MG) 21 MG PATCH.TD24 TD SCH ×3 (09:00→13:19)
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
[2021-08-04] MEDS ORDERED: OLANZAPINE 10 MG VIAL IM ONE (13:00)
--- NOTE | 2021-08-04 13:21 | NUR ---
RN-NOTES PATIENT DID AGREED TO TAKE THE NICOTINE PATCH.
[2021-08-04 16:00] VITALS: BP 130/65
[2021-08-04 20:00] VITALS: BP 143/81
[2021-08-04] MEDS: TEMAZEPAM 7.5 MG CAPSULE PO PRN (21:28)
[2021-08-05] MEDS: LORAZEPAM 0.5 MG TABLET PO PRN ×2 (01:47→09:05)
[2021-08-05 08:00] VITALS: BP 132/82
[2021-08-05] MEDS ORDERED: DIVALPROEX SODIUM 250 MG TABLET.DR PO SCH (08:00)
[2021-08-05] MEDS: FAMOTIDINE (20 MG) 20 MG TABLET PO SCH (08:09)
[2021-08-05] MEDS: BENZTROPINE MESYLATE (1 MG) 1 MG TABLET PO SCH ×3 (08:09→17:23)
[2021-08-05] MEDS: DIVALPROEX SODIUM 250 MG TABLET.DR PO SCH ×3 (08:09→21:38)
[2021-08-05] MEDS: risperiDONE 1 MG TABLET PO SCH ×3 (08:18→17:23)
[2021-08-05] MEDS: MUPIROCIN OINT 2% 22 GM TUBE NS SCH ×2 (08:18→21:38)
--- NOTE | 2021-08-05 09:09 | NUR ---
RN-NOTES PATIENT STATED" I NEED ATIVAN FOR MY ANXIETY",ATIVAN 0.5MG P.O GIVEN PRN ORDER. WILL CONT. MONITORING FOR SAFETY AND BEHAVIOR.
--- NOTE | 2021-08-05 10:10 | NUR ---
RN-NOTES PATIENT WATCHING TV IN THE DAY ROOM,CALM,NO ACUTE DISTRESS NOTED.
[2021-08-05] MEDS: NICOTINE PATCH (21MG) 21 MG PATCH.TD24 TD SCH (12:38)
--- NOTE | 2021-08-05 13:49 | NUR ---
Individual Therapy: SW met with patient to conduct brief therapy on patient's presenting problem disorganized thoughts. Patient was tired and wanted to sleep at this time. SW will conduct therapy at another time.
[2021-08-05 16:00] VITALS: BP 136/93
[2021-08-05 20:06] VITALS: BP 125/57
[2021-08-06] MEDS: HYDROCODONE/APAP 10/325MG TABLET PO PRN ×2 (01:18→10:37)
--- NOTE | 2021-08-06 01:20 | NUR ---
cage/vault supervisor notes: given prn norco 10/325 mg po d/t pain on right knee 06/21. all comfort measures rendered. will monitor closely.
[2021-08-06 08:00] VITALS: BP 132/60
[2021-08-06] MEDS: NICOTINE PATCH (21MG) 21 MG PATCH.TD24 TD SCH (09:10)
[2021-08-06] MEDS: FAMOTIDINE (20 MG) 20 MG TABLET PO SCH (09:10)
[2021-08-06] MEDS: DIVALPROEX SODIUM 250 MG TABLET.DR PO SCH ×3 (09:10→21:44)
[2021-08-06] MEDS: BENZTROPINE MESYLATE (1 MG) 1 MG TABLET PO SCH ×3 (09:10→16:22)
[2021-08-06] MEDS: risperiDONE 1 MG TABLET PO SCH ×3 (09:10→16:22)
[2021-08-06] MEDS: MUPIROCIN OINT 2% 22 GM TUBE NS SCH ×2 (09:11→20:53)
[2021-08-06] MEDS: LORAZEPAM 0.5 MG TABLET PO PRN ×2 (12:08→20:34)
--- NOTE | 2021-08-06 13:24 | NUR ---
RN-NOTES NOTED PATIENT START SCREAMING AND YELLING AT THE HEEL DIPPER STAFF IN THE DAY ROOM USING FOUL LANGUAGE. UPON INVESTIGATION PATIENT CLAIMS THAT NO ONE HELPING HER . PATIENT REQUESTING AN IM SHOT TO HELP CALM HER DOWN. Addendum: 08/06/21 at [address] W[address] RN DR. DANIELS MADE AWARE WITH T.O ORDER OF ZYPREXA 10MG IM ONCE.NOTED AND CARRIED OUT.
[2021-08-06] MEDS ORDERED: OLANZAPINE 10 MG VIAL IM ONE (14:00)
--- NOTE | 2021-08-06 15:00 | NUR ---
RN NOTES PATIENT SEEN RESTING IN THE ROOM, EYES CLOSED, ABLE TO BE AWAKENED. NOT IN ACUTE DISTRESS. PATIENT CURRENTLY CALM AND RESPONDS APPROPRIATELY. NO EPISODE OF AGGRESSIVE BEHAVIOR NOTED. WILL CONTINUE TO MONITOR.
[2021-08-06 16:00] VITALS: BP 129/61
[2021-08-06 19:57] VITALS: BP 143/83
--- NOTE | 2021-08-06 20:35 | NUR ---
RN NOTES: ANXIETY PT. C/O VERY ANXIOUS ,PACING IN HALLWAY , PARANOID HYPERVERBAL , NEEDY DEMENDING, NON REDICTABLE, ATIVAN 1 MG PO PRN GIVEN , WILL CONTINUE TO MONITOR.
[2021-08-07 07:27] LABS: BASOPHILS # (AUTO) 0.1 K/uL (0.0-0.2); BASOPHILS % (AUTO) 0.8 % (0.0-2.0); EOSINOPHILS % (AUTO) 4.6 % (0.0-6.0); HEMATOCRIT 42 % (33-45); HEMOGLOBIN 13.7 g/dL (11.5-14.8); LYMPHOCYTES # (AUTO) 2.8 K/uL (0.8-4.8); LYMPHOCYTES % (AUTO) 39.6 % (20.0-44.0); MEAN CORPUSCULAR HGB CONC 33 g/dl (31.0-36.0); MEAN CORPUSCULAR VOLUME 87 fL (82-100); MONOCYTES # (AUTO) 0.8 K/uL (0.1-1.30); PLATELET COUNT (AUTO) 221 K/uL (150-450); RED BLOOD CELL COUNT(AUTO) 4.76 MIL/uL (4.0-5.2); WHITE BLOOD COUNT (AUTO) 7.1 K/uL (4.3-11.0)
[2021-08-07 08:00] VITALS: BP 143/62
[2021-08-07] MEDS: NICOTINE PATCH (21MG) 21 MG PATCH.TD24 TD SCH (08:01)
[2021-08-07] MEDS: BENZTROPINE MESYLATE (1 MG) 1 MG TABLET PO SCH ×3 (08:01→17:32)
[2021-08-07] MEDS: risperiDONE 1 MG TABLET PO SCH ×3 (08:02→20:26)
[2021-08-07] MEDS: HYDROCODONE/APAP 10/325MG TABLET PO PRN ×2 (08:02→15:49)
[2021-08-07] MEDS: FAMOTIDINE (20 MG) 20 MG TABLET PO SCH (08:02)
[2021-08-07] MEDS: DIVALPROEX SODIUM 250 MG TABLET.DR PO SCH ×3 (08:02→21:57)
[2021-08-07 09:04] LABS: ALBUMIN 3.3 g/dL (3.4-5.0); BILIRUBIN,TOTAL 0.3 mg/dL (0.2-1.0); CREATININE 0.8 mg/dL (0.6-1.3); POTASSIUM 4.2 mmol/L (3.5-5.1); TOTAL PROTEIN, SERUM 7.3 g/dL (6.4-8.2)
[2021-08-07] MEDS: MUPIROCIN OINT 2% 22 GM TUBE NS SCH ×2 (09:45→20:31)
--- NOTE | 2021-08-07 15:49 | NUR ---
RN-CO: NORCO GIVEN FOR PAIN 8/10 ON RIGHT ANKLE.
[2021-08-07 16:00] VITALS: BP 154/74
[2021-08-07 20:00] VITALS: BP 150/76
[2021-08-07] MEDS: LORAZEPAM 0.5 MG TABLET PO PRN (20:26)
--- NOTE | 2021-08-07 20:27 | NUR ---
Pt c/o anxiety. Least restrictive measures ineffective. Ativan 1 mg po prn given as ordered. Will continue to monitor.
--- NOTE | 2021-08-07 22:00 | NUR ---
Post 1 hr Ativan effective. Pt calm and asleep in bed easy to arouse. Frequent visual check done for safety. Will continue to monitor.
[2021-08-08] MEDS: LORAZEPAM 0.5 MG TABLET PO PRN ×2 (06:19→12:48)
--- NOTE | 2021-08-08 06:20 | NUR ---
Pt c/o anxiety. Least restrictive measures ineffective. Ativan 1 mg 2 tabs po prn given as ordered. Will continue to monitor.
--- NOTE | 2021-08-08 07:19 | NUR ---
Post 1 hr Ativan effective. Pt calm. Will continue to monitor.
[2021-08-08 08:00] VITALS: BP 107/63
[2021-08-08] MEDS: risperiDONE 1 MG TABLET PO SCH ×3 (08:13→20:00)
[2021-08-08] MEDS: NICOTINE PATCH (21MG) 21 MG PATCH.TD24 TD SCH (08:14)
[2021-08-08] MEDS: BENZTROPINE MESYLATE (1 MG) 1 MG TABLET PO SCH ×3 (08:14→17:20)
[2021-08-08] MEDS: FAMOTIDINE (20 MG) 20 MG TABLET PO SCH (08:14)
[2021-08-08] MEDS: DIVALPROEX SODIUM 250 MG TABLET.DR PO SCH ×3 (08:14→17:20)
[2021-08-08] MEDS: HYDROCODONE/APAP 10/325MG TABLET PO PRN ×2 (08:14→14:02)
--- NOTE | 2021-08-08 12:51 | NUR ---
RN-CO: ATIVAN GIVEN FOR MODERATE ANXIETY.
[2021-08-08 16:00] VITALS: BP 142/85
[2021-08-08] MEDS ORDERED: LORAZEPAM 1 MG TABLET PO PRN (16:00)
[2021-08-08 20:13] VITALS: BP 108/73
[2021-08-09] MEDS: risperiDONE 1 MG TABLET PO SCH ×3 (07:58→20:08)
[2021-08-09] MEDS: DIVALPROEX SODIUM 250 MG TABLET.DR PO SCH ×3 (07:58→17:04)
[2021-08-09 08:00] VITALS: BP 132/71
[2021-08-09] MEDS: BENZTROPINE MESYLATE (1 MG) 1 MG TABLET PO SCH ×3 (08:42→17:04)
[2021-08-09] MEDS: NICOTINE PATCH (21MG) 21 MG PATCH.TD24 TD SCH (08:43)
[2021-08-09] MEDS: FAMOTIDINE (20 MG) 20 MG TABLET PO SCH (08:43)
[2021-08-09 16:00] VITALS: BP 134/73
[2021-08-09] MEDS: HYDROCODONE/APAP 10/325MG TABLET PO PRN (17:50)
[2021-08-09 20:55] VITALS: BP 129/78
[2021-08-10 07:36] LABS: BASOPHILS % (AUTO) 0.4 % (0.0-2.0); EOSINOPHILS % (AUTO) 4.3 % (0.0-6.0); HEMATOCRIT 38 % (33-45); HEMOGLOBIN 12.7 g/dL (11.5-14.8); LYMPHOCYTES # (AUTO) 2.6 K/uL (0.8-4.8); LYMPHOCYTES % (AUTO) 34.9 % (20.0-44.0); MEAN CORPUSCULAR HGB CONC 33 g/dl (31.0-36.0); MEAN CORPUSCULAR VOLUME 87 fL (82-100); MONOCYTES % (AUTO) 12.9 % (2.0-12.0); NEUTROPHILS # (AUTO) 3.6 K/uL (1.8-8.9); NEUTROPHILS % (AUTO) 47.5 % (43.0-81.0); PLATELET COUNT (AUTO) 223 K/uL (150-450); WHITE BLOOD COUNT (AUTO) 7.6 K/uL (4.3-11.0)
[2021-08-10 08:00] VITALS: BP 133/90
[2021-08-10] MEDS: FAMOTIDINE (20 MG) 20 MG TABLET PO SCH (08:12)
[2021-08-10] MEDS: NICOTINE PATCH (21MG) 21 MG PATCH.TD24 TD SCH (08:12)
[2021-08-10] MEDS: BENZTROPINE MESYLATE (1 MG) 1 MG TABLET PO SCH (08:12)
[2021-08-10] MEDS: risperiDONE 1 MG TABLET PO SCH (08:12)
[2021-08-10] MEDS: DIVALPROEX SODIUM 250 MG TABLET.DR PO SCH (08:12)
--- NOTE | 2021-08-10 08:21 | NUR ---
SW Discharge Note: Patient will be discharged to [facility] facility [facility] [address], [place] [address]; ). Please arrange transportation at 1PM. D[employer]at Mill Operator spoke with Theresa admissions specialist at [facility]; ([phone], who stated patient will be accepted today. Patient does not have any family to contact. Patient is alert and oriented x3 and is unable to plan for self-care. Patient denies any suicidal or homicidal ideations. Patient is aware and agreeable with discharge plans. Patient will continue to follow-up with (psychiatrist) Dr. Ruano [address] [facility] [address], [place] [address]; ([phone]) and (expander machine operator) Dr. Jang [address] [facility] [address], [place] [address]; ([phone]). Patient presents with euthymic and congruent mood.
[2021-08-10 09:30] LABS: ALBUMIN 3.2 g/dL (3.4-5.0); BILIRUBIN,TOTAL 0.4 mg/dL (0.2-1.0); CALCIUM, SERUM 8.6 mg/dL (8.5-10.1); CREATININE 0.8 mg/dL (0.6-1.3); POTASSIUM 3.7 mmol/L (3.5-5.1)
--- NOTE | 2021-08-10 13:30 | NUR ---
CLINICAL COUNSELOR NOTE: 61 YEAR OLD FEMALE DISCHARGED TO [facility] IN STABLE CONDITION. COMPLIANT WITH MEDICATIONS, COOPERATIVE WITH TREATMENT PLANS. PATIENT DENIES SI/HI AND INSTRUCTED TO GO TO THE CLOSEST ER IF DEVELOPING SI/HI. BEHAVIOR IMPROVED, PSYCHIATRIC TREATMENT PLANS MET, MEDICAL TREATMENT PLANS DEFERRED FOR CONTINUAL MONITORING. EDUCATED PT ABOUT AFTER CARE AND EXIT CARE. COPY PROVIDED. RETURNED PERSONAL BELONGINGS TO PATIENT. MEDICATIONS RECONCILED WITH DR. LEY AND DR. DANIELS. REPORT GIVEN TO ALEX MICHAEL FOR CONTINUITY OF CARE. PATIENT UNABLE TO SIGN DISCHARGE PAPERWORK DUE TO CONFUSION AND PARANOIA. PT REFUSED DISCHARGE AND ADMIT SKIN ASSESSMENT. PATIENT LEFT THE UNIT VIA GURNEY WITH EMS PRESENT AT 1330 IN STABLE CONDITION.
== END 2021-08-10 13:30 | DRG 885 ==
LOC: ER 12:12 → GPS 17:11
PROVIDERS: ADMIT Psychiatry & Neurology Psychosomatic Medicine; ATTEND Internal Medicine
DX: F25.0 Schizoaffective disorder, bipolar type (principal); R45.851 Suicidal ideations; I10 Essential (primary) hypertension; J44.9 Chronic obstructive pulmonary disease, unspecified; F43.10 Post-traumatic stress disorder, unspecified; Z22.322 Carrier or suspected carrier of Methicillin resistant Staphylococcus aureus; F41.9 Anxiety disorder, unspecified; F17.210 Nicotine dependence, cigarettes, uncomplicated; Z20.822 Contact with and (suspected) exposure to COVID-19; M62.81 Muscle weakness (generalized); F19.90 Other psychoactive substance use, unspecified, uncomplicated
CPT/HCPCS: 36415; 73620-TC; 80048-TC; 80053-TC; 80061-TC; 80076-TC; 80164-TC; 82962-TC; 85025-TC; 87081-TC; C9803; G0480; J2060; J2270; J3490